=== PATIENT | female | born 1965 | race Native Hawaiian/Other Pacific Islander ===

== ENCOUNTER → 2020-06-21 10:32 | Outpatient (CLI) | payer OTHER, SELFPAY ==
--- NOTE | 2020-06-21 10:35 | DI.MG.S_ITS ---
BILATERAL DIGITAL SCREENING MAMMOGRAM 3D/2D WITH CAD: 06/21/2020 CLINICAL: Routine screening. Comparison is made to exams dated: 06/21/2015 mammogram, 07/27/2016 mammogram, and 07/10/2018 mammogram - [facility]. The tissue of both breasts is heterogeneously dense. This may lower the sensitivity of mammography. Current study was also evaluated with a Computer Aided Detection (CAD) system. No significant masses, calcifications, or other findings are seen in either breast. There has been no significant interval change. IMPRESSION: NEGATIVE There is no mammographic evidence of malignancy. A 1 year screening mammogram is recommended. This exam was interpreted at Station ID: [id number]. NOTE: For mammograms, a report in lay terms will be sent to the patient. Approximately 15% of breast malignancies will not be visualized mammographically. In the management of a palpable breast mass, a negative mammogram must not discourage biopsy of a clinically suspicious lesion. Electronically Signed By: Jae ribeiro/rosette:06/23/2020 08:03:44 letter sent: Normal Exam ACR BI-RADS Category 1: Negative 3341F
== END ==
PROVIDERS: PCP Family Medicine; Referring Provider Family Medicine; Visit Provider Family Medicine
DX: Z12.31 Encounter for screening mammogram for malignant neoplasm of breast (principal)
CPT/HCPCS: 77063; 77067

== ENCOUNTER 2022-09-03 06:34 | Day surgery (SDC) | payer OTHER, SELFPAY ==
[2022-09-03 07:07] VITALS: BMI 22.6
[2022-09-03 07:27] VITALS: BP 139/73; PULSE 84; RESP 16; TEMP 36.7; O2SAT 100
[2022-09-03] MEDS: LACTATED RINGERS 1,000 ML 42 ML IV (07:33)
--- NOTE | 2022-09-03 07:58 | PM.HP.1 ---
History of Present Illness History of Present Illness Date Patient Seen: 09/03/22 Time Patient Seen: 07:58 Chief complaint: Dx Colonoscopy Narrative: Ms. Martinez presents today for screening colonoscopy. She has no family history of colon cancer. This is her 2nd colonoscopy she thinks her 1st was about 10 years ago although she feels that she was due sometime ago and got delayed because of COVID. Her last colonoscopy was done at [facility] and she thinks there were polyps. She has no concerning symptoms of bleeding or changes in bowel habits. [facility] Social History household members: spouse Smoking Status: Never smoker alcohol intake: current Meds Home Medications and Allergies Home Medications Medication Instructions Recorded Confirmed Type naproxen 500 mg tablet (Naprosyn) 500 mg PO BID ##0 04/21/16 09/03/22 History Allergies Allergy/AdvReac Type Severity Reaction Status Date / Time No Known Drug Allergies Allergy Verified 09/03/22 07:34 Exam Vital Signs (past 8 hours): - 09/03/22 07:27 Temperature 98.1 F Pulse Rate 84 Respiratory Rate 16 Blood Pressure 139/73 Pulse Oximetry 100 Oxygen Delivery Method Room Air Oxygen Delivery Method Room Air Const General: cooperative, healthy appearing and comfortable HENMT Head: normal to inspection Mouth: oral mucosae normal Eyes General: appearance normal, both eyes and all related structures Resp Effort & Inspection: normal respiratory effort and able to speak in complete sentences Cardio Pulses: radial pulses present GI Palpation: soft and No tender Assessment & Plan Assessment and plan (1) History of colon polyps: Status: Acute (2) Screening for colon cancer: Status: Acute Assessment & Plan narrative: Presents today for screening colonoscopy I discussed the risks benefits and alternatives including but not limited to perforation of the colon and an incomplete exam she fully understands these risks and would like to proceed.
[2022-09-03 08:36] VITALS: BP 104/55; PULSE 70; RESP 18; TEMP 36.4; O2SAT 98
[2022-09-03 08:41] VITALS: BP 108/66; PULSE 68; RESP 16; O2SAT 100
--- NOTE | 2022-09-03 08:43 | P.OP.COLON_ITS ---
Operative Date/Time/Diagnoses Date of procedure: 09/03/22 Time of procedure: 08:43 Pre-op diagnosis: History of polyps, colon cancer screening Post-op diagnosis: same Procedure & Clinicians Study performed: Colonoscopy Same procedure as scheduled: Yes Indications: History of polyps, colon cancer screening Surgeon: Joi Sutherland Procedure Notes Procedure in detail: Patient was taken to the endoscopy suite and placed in a left lateral decubitus position. Time-out was performed. Conscious sedation was induced and monitored throughout with the assistance of an anesthesiologist. A digital rectal exam was performed and there were no masses or strictures. No external hemorrhoids appreciated. The colonoscope was introduced into the anal canal and advanced through to the cecum. A photograph of the appendiceal orifice was obtained. T he prep was poor Johnson bowel prep score of 1. There were large particulate bowel contents which obscured partially the colonic mucosa. Every effort was made to suction and irrigate and adequately examine the mucosa and the withdrawal time in total was 12 minutes. No polyps were seen and no biopsies were taken. There were several photographs obtained to show the quality of the bowel prep in case of a question, but I would recommend a 5 year follow-up to be safe that no smaller polyps were missed. Specimen(s): none sent Complications: none Post-procedure Recommendations: Colonoscopy in 5 years Plan for aftercare: For the next colonoscopy I recommend a clear liquid diet for at least 2 days prior to the colonoscopy. Disposition: PACU
[2022-09-03 08:46] VITALS: BP 101/51; PULSE 71; RESP 16; O2SAT 100
[2022-09-03 08:51] VITALS: BP 113/73; PULSE 69; RESP 14; O2SAT 100
[2022-09-03 08:58] VITALS: BP 121/77; PULSE 69; RESP 16; TEMP 36.2; O2SAT 100
--- NOTE | 2022-09-03 09:03 | SUR.PHASEII ---
pt states she is ready to eat and to go home. Pt denies any dizziness and denies any complaints.
== END 2022-09-03 09:07 | disposition home or self-care (01) ==
PROVIDERS: PCP Family Medicine; Referring Provider Surgery; Visit Provider Surgery
PROC: 0DJD8ZZ Inspection of Lower Intestinal Tract, Via Natural or Artificial Opening Endoscopic (ICD-10-PCS; CPT 45378; principal; 2022-09-03 07:45)
DX: Z12.11 Encounter for screening for malignant neoplasm of colon (principal); Z86.010 Personal history of colon polyps
CPT/HCPCS: 45378; J2704